=== PATIENT | male | born 1945 | race Caucasian/White ===

== ENCOUNTER 2018-10-08 20:33 | Observation (INO) ==
[2018-10-08 21:26] LABS: Basophils % 0.2 %; Eosinophils # 0.3 K/mcL (0.0-0.6); Eosinophils % 2.4 %; Hematocrit 39.5 % (37.5-50.1); Hemoglobin 13.6 g/dL (12.9-16.9); Immature Granulocytes % 0.6 % (0-4); Lymphocytes # 0.7 K/mcL (0.6-4.6); Lymphocytes % 6.5 %; Mean Corpuscular HGB Conc 34.4 g/dL (31.6-35.5); Mean Corpuscular Hemoglobin 32.5 pg (28.0-33.3); Mean Corpuscular Volume 94.5 fL (83.0-100.0); Monocytes # 0.6 K/mcL (0.0-1.3); Monocytes % 5.5 %; Platelet Count 197 K/mcL (140-400); Red Blood Count 4.18 M/mcL (4.19-5.50); Red Cell Distribution Width 13.2 % (11.5-14.5); Segmented Neutrophils % 84.8 %
[2018-10-08 21:32] LABS: Neutrophils # 9.7 K/mcL (1.6-8.9)
[2018-10-08 21:34] LABS: INR 1.1; Prothrombin Time 12.1 Seconds (9.4-12.1)
[2018-10-08 21:36] LABS: Activated Partial Thrombo Time 31.1 Seconds (26.0-36.0)
[2018-10-08 21:56] LABS: BUN/Creatinine Ratio 13 (6-26); Blood Urea Nitrogen 12 mg/dL (8-23); Calcium 9.3 mg/dL (8.6-10.3); Carbon Dioxide 24 mEq/L (23-29); Chloride 107 mEq/L (98-107); Glucose 141 mg/dL (70-105); Osmolality,Calculated 290 (280-300); Potassium 3.8 mEq/L (3.5-5.1); Sodium 139 mEq/L (136-145); eGFR For Non-African Americans > 60 (> 60)
--- NOTE | 2018-10-08 22:36 | Emergency Department Note ---
Disposition Clinical Impression: Acute exacerbation of chronic obstructive airways disease Disposition: Admitted As Inpatient Condition: Fair Referrals: Rohit Solis MD [Primary Care Provider] - Forms: ED Satisfaction Letter Time of Disposition: 23:51 SOB HPI - General Chief Complaint: ED Shortness of Breath/Dyspnea Stated Complaint: KACIE Time Seen by Provider: 10/08/18 20:40 Source: patient, EMS Mode of arrival: ambulatory Limitations: no limitations, other Nursing Notes Reviewed: Yes Vital Signs Reviewed: Yes - History of Present Illness 72-year-old male who presents to the emergency increasing shortness of breath received DuoNeb treatments and Solu-Medrol in route was X she starting to feel better at this point he denies any blurred vision double vision is having dyspnea with activity dyspnea with exertion denies any chest pain or chest pressure patient states is just having shortness of breath he feels that he smothering he denies any diarrhea melena hematochezia hematemesis he said symptoms started about 6 weeks ago he denies any recent weight gain or weight loss he denies any additional complaints with complete entire review systems Pt Subjective Complaint: shortness of breath Onset (ago): week(s) (6) Context: recent illness Severity: none Consistency/Duration: gradually worsening Improves with: nothing Worsens with: nothing Known history of: COPD Associated symptoms: Reports: cough, wheezing, sputum production. Denies: chest pain, pain with inspiration, fever, orthopnea, lower extremity pain, polyuria, polydipsia, parasthesias, palpitations, hemoptysis, diaphoresis, nausea/vomiting, syncope, abdominal pain, sense of impending doom Treatment prior to arrival: none Cough present: Yes Cough Description: Voluntary, Non-Productive, Strong Cough Frequency: Continuous Sputum production: Yes Sputum Amount: Scant Sputum Color: White - Related Data Home Medications Medication Instructions Recorded Confirmed Atorvastatin [Lipitor] 40 mg PO HS 02/12/17 11/27/17 Cholecalciferol (Vitamin D3) 2,000 unit PO DAILY 02/12/17 11/27/17 [Vitamin D] Cyanocobalamin (Vitamin B-12) 1,000 mcg PO DAILY 02/12/17 11/27/17 [Vitamin B12] SUMAtriptan succinate [Imitrex] 6 mg SQ Q2-4H PRN 11/27/17 11/27/17 Allergies Allergy/AdvReac Type Severity Reaction Status Date / Time Sulfa (Sulfonamide AdvReac See Verified 11/21/17 17:24 Antibiotics) Comments All systems ED: reviewed and negative except as stated. Review of Systems: As Per HPI Constitutional: Reports: weakness. Denies: fever, chills Eyes: Denies: eye pain, eye discharge ENT ED: Denies: ear pain, throat pain Cardiovascular: Reports: dyspnea on exertion. Denies: chest pain, palpitations Respiratory: Reports: wheezes, sputum production. Denies: cough, dyspnea Gastrointestinal: Denies: abdominal pain, nausea Genitourinary: Denies: urgency, dysuria Musculoskeletal: Denies: back pain, neck pain Integumentary: Denies: rash Neurological: Reports: headache Psychiatric: Denies: anxiety Endocrine: Denies: fatigue, heat or cold intolerance Hematological/Lymphatic: Denies: easy bleeding Allergic/Immunologic: Denies: facial swelling Past Medical History - Past Medical History Attestation: Yes The following information was validated with the patient. Source: patient, old records reviewed, nursing notes reviewed Medical history: Reports: cardiomyopathy, hyperlipidemia Surgical history: Reports: appendectomy, herniorrhaphy Psychiatric history: Reports: no psych history - Social History Smoking Status: Current every day smoker Smokeless Tobacco Status: No Alcohol use: Reports: rarely Drug use: Reports: none Physical Exam - General Limitations: other General appearance: alert, in no apparent distress - Head Head exam: atraumatic, normocephalic, normal inspection - Eye Eye exam: Present: normal appearance, PERRL, EOMI - ENT ENT exam: normal exam, normal oropharynx, mucous membranes moist, TM's normal bilaterally, normal external ear exam - Neck Neck exam: Present: normal inspection, full ROM, trachea midline - Chest Chest inspection: Present: normal inspection, symmetric chest wall rise - Respiratory Respiratory exam: Present: normal lung sounds bilaterally - Cardiovascular Cardiovascular exam: Present: regular rate, normal rhythm, normal heart sounds - Abdominal Exam Abdominal exam: Present: soft, Non-Tender, normal bowel sounds. Absent: mass, pulsatile mass - Expanded Upper Extremity Exam Shoulder exam: Present: normal inspection, full ROM Arm exam: Present: normal inspection, full ROM Elbow exam: Present: normal inspection, full ROM Forearm/Wrist exam: Present: normal inspection, full ROM Hand exam: Present: normal inspection, full ROM Vascular exam: Normal: capillary refill, radial pulse - Expanded Lower Extremity Exam Hip/Pelvis exam: Present: normal inspection, full ROM Upper leg exam: Present: normal inspection, full ROM Knee exam: Present: normal inspection, full ROM Lower leg exam: Present: normal inspection, full ROM Ankle exam: Present: normal inspection, full ROM Foot/toe exam: Present: normal inspection, full ROM Neurovascular/Tendon exam: Present: normal capillary refill, normal fine/light touch. Absent: motor deficit, sensory deficit, tendon deficit Gait: observed and normal - Back Exam Back exam: Present: normal inspection, full ROM. Absent: muscle spasm - Neurological Exam Neurological exam: Present: alert, oriented X3, CN II-XII intact, normal gait - Psychiatric Psychiatric exam: Present: normal affect, normal mood - Skin Skin exam: Present: warm, dry, intact, normal color Course Course Narrative: pt seen and examined and admitted transferred to [facility] for management of COPD exacerbation Vital Signs Temperature 98.0 F 10/08/18 20:35 Pulse Rate 92 10/08/18 20:35 Respiratory Rate 26 10/08/18 20:35 Blood Pressure 131/76 10/08/18 20:35 O2 Sat by Pulse Oximetry 91 10/08/18 20:35 Temperature 98.0 F 10/08/18 20:35 Pulse Rate 86 10/08/18 21:13 Respiratory Rate 18 10/08/18 21:13 Blood Pressure 128/80 10/08/18 21:13 O2 Sat by Pulse Oximetry 95 10/08/18 21:13 Oxygen Delivery Oxygen Delivery Nasal Cannula Shortness of Breath/Dyspnea - Differential Diagnosis Likely: acute exacerbation of chronic obstructive airways disease - Medical Records Medical records reviewed: Yes I reviewed the patient's medical records. - Lab Data Lab results reviewed: Yes I reviewed the patient's lab results. Result diagrams: 10/08/18 21:19 10/08/18 21:19 Lab Results 10/08/18 10/08/18 10/08/18 Range/Units 21:19 21:19 21:19 WBC 11.4 H (4.3-11.1) K/mcL RBC 4.18 L (4.19-5.50) M/mcL Hgb 13.6 (12.9-16.9) g/dL Hct 39.5 (37.5-50.1) % MCV 94.5 (83.0-100.0) fL MCH 32.5 (28.0-33.3) pg MCHC 34.4 (31.6-35.5) g/dL RDW 13.2 (11.5-14.5) % Plt Count 197 (140-400) K/mcL MPV 9.0 L (9.4-12.4) fL Immature Gran % 0.6 (0-4) % Seg Neutrophils % 84.8 % Lymphocytes % 6.5 % Monocytes % 5.5 % Eosinophils % 2.4 % Basophils % 0.2 % Neutrophils # 9.7 H (1.6-8.9) K/mcL Lymphocytes # 0.7 (0.6-4.6) K/mcL Monocytes # 0.6 (0.0-1.3) K/mcL Eosinophils # 0.3 (0.0-0.6) K/mcL Basophils # 0.0 (0.0-0.2) K/mcL PT 12.1 (9.4-12.1) Seconds INR 1.1 APTT 31.1 (26.0-36.0) Seconds Sodium 139 (136-145) mEq/L Potassium 3.8 (3.5-5.1) mEq/L Chloride 107 (98-107) mEq/L Carbon Dioxide 24 (23-29) mEq/L BUN 12 (8-23) mg/dL Creatinine 0.93 (0.70-1.30) mg/dL Est GFR ( Amer) > 60 (> 60) Est GFR (Non-Af Amer) > 60 (> 60) BUN/Creatinine Ratio 13 (6-26) Glucose 141 H (70-105) mg/dL Calculated Osmolality 290 (280-300) Lactic Acid (0.5-2.2) mmol/L Calcium 9.3 (8.6-10.3) mg/dL Troponin I (< 0.04) ng/mL 10/08/18 10/08/18 Range/Units 21:19 21:19 WBC (4.3-11.1) K/mcL RBC (4.19-5.50) M/mcL Hgb (12.9-16.9) g/dL Hct (37.5-50.1) % MCV (83.0-100.0) fL MCH (28.0-33.3) pg MCHC (31.6-35.5) g/dL RDW (11.5-14.5) % Plt Count (140-400) K/mcL MPV (9.4-12.4) fL Immature Gran % (0-4) % Seg Neutrophils % % Lymphocytes % % Monocytes % % Eosinophils % % Basophils % % Neutrophils # (1.6-8.9) K/mcL Lymphocytes # (0.6-4.6) K/mcL Monocytes # (0.0-1.3) K/mcL Eosinophils # (0.0-0.6) K/mcL Basophils # (0.0-0.2) K/mcL PT (9.4-12.1) Seconds INR APTT (26.0-36.0) Seconds Sodium (136-145) mEq/L Potassium (3.5-5.1) mEq/L Chloride (98-107) mEq/L Carbon Dioxide (23-29) mEq/L BUN (8-23) mg/dL Creatinine (0.70-1.30) mg/dL Est GFR ( Amer) (> 60) Est GFR (Non-Af Amer) (> 60) BUN/Creatinine Ratio (6-26) Glucose (70-105) mg/dL Calculated Osmolality (280-300) Lactic Acid 0.8 (0.5-2.2) mmol/L Calcium (8.6-10.3) mg/dL Troponin I < 0.03 (< 0.04) ng/mL - Radiology Data Radiology results reviewed: Yes I reviewed the patient's radiology results. ITS Impressions Chest X-Ray 10/08/18 21:06 IMPRESSION: No acute cardiopulmonary process D/ / Prince Tomas / Prince Tomas Interpreting Provider: Prince Tomas Critical Care Time Critical Care Time: No
[2018-10-08] MEDS ORDERED: Acetaminophen/Butalbital/CaffeineTABLET PO PRN (23:40)
[2018-10-08] MEDS ORDERED: Acetaminophen/Butalbital/CaffeineTABLET PO ONE (23:50)
[2018-10-09] MEDS ORDERED: Naloxone 0.4 MG/ML INJ IVP PRN ×2 (00:52)
[2018-10-09] MEDS ORDERED: Ondansetron 4 MG/2 ML VIAL IVP PRN (00:52)
[2018-10-09] MEDS: 0.9 % Sodium Chloride 1,000 ML IVC SCH ×2 (01:18→08:54)
[2018-10-09] MEDS: MethylPREDNISolone 40 MG/ML VIAL IVP SCH ×2 (01:18→06:09)
[2018-10-09] MEDS: Albuterol 2.5 MG/3 ML NEBULIZER IH SCH ×2 (02:19→04:20)
[2018-10-09] MEDS: Ipratropium/Albuterol Neb 3 ML IH SCH ×2 (04:21→10:49)
[2018-10-09 05:57] LABS: Basophils % 0.1 %; Hematocrit 40.7 % (37.5-50.1); Hemoglobin 13.9 g/dL (12.9-16.9); Immature Granulocytes % 0.6 % (0-4); Lymphocytes # 0.3 K/mcL (0.6-4.6); Mean Corpuscular HGB Conc 34.2 g/dL (31.6-35.5); Mean Corpuscular Hemoglobin 32.7 pg (28.0-33.3); Mean Corpuscular Volume 95.8 fL (83.0-100.0); Mean Platelet Volume 9.6 fL (9.4-12.4); Monocytes # 0.1 K/mcL (0.0-1.3); Monocytes % 0.6 %; Neutrophils # 7.5 K/mcL (1.6-8.9); Platelet Count 214 K/mcL (140-400); Red Blood Count 4.25 M/mcL (4.19-5.50); Red Cell Distribution Width 13.2 % (11.5-14.5); Segmented Neutrophils % 94.7 %
[2018-10-09 06:16] LABS: BUN/Creatinine Ratio 15 (6-26); Blood Urea Nitrogen 13 mg/dL (8-23); Calcium 9.5 mg/dL (8.6-10.3); Carbon Dioxide 22 mEq/L (23-29); Chloride 105 mEq/L (98-107); Glucose 166 mg/dL (70-105); Osmolality,Calculated 284 (280-300); Potassium 3.8 mEq/L (3.5-5.1); Sodium 135 mEq/L (136-145); eGFR For Non-African Americans > 60 (> 60)
[2018-10-09] MEDS ORDERED: Albuterol 2.5 MG/3 ML NEBULIZER IH PRN (07:45)
[2018-10-09] MEDS ORDERED: Levofloxacin 500 MG/100 ML 500 MG/100 ML BAG IVPB SCH (09:00)
[2018-10-09 10:37] VITALS: BP 115/65
--- NOTE | 2018-10-09 11:58 | Internal Med History&Physical ---
Date of Encounter: 10/09/18 Time of Encounter: 11:25 Assessment and Plan (1) Acute exacerbation of chronic obstructive airways disease Current visit: Yes Status: Acute He was started on IV Levaquin and steroids in emergency room. The chest x-ray showed no infiltrate. He will not continue with antibiotics. He will be given Pro-air HFA at discharge. Internal Medicine - H&P: HPI Chief complaint: Cough and dyspnea Admitted From: Emergency Dept Plans for Post Hospital Care: Home History of present illness: Mr. Morris is a 72 year old male who came to emergency room complaining of cough and dyspnea onset onset several days earlier but worsening in the past 2 days. He also reported feeling slightly "off balance" but had no falls. He denies fevers chills vomiting diarrhea or pain. He was evaluated in emergency room and was felt to have exacerbation of COPD. He was admitted to [facility] floor for ongoing care needs. He has smoked since age 16 up to 1-1/2 packs per day. He was diagnosed with emphysema but does not recall PFTs. He does not use home oxygen. He states he feels improved at the present time and wishes to be discharged home. Past Med Surg Social Fam HX - Past Medical History Medical history: cardiomyopathy, COPD, hyperlipidemia Additional medical history: cluster headaches Psychiatric history: no psych history - Past Surgical History Surgical History: appendectomy, herniorrhaphy Additional surgical history: bladder surgery, colonoscopy,tonsils - Social History Smoking Status: Current every day smoker Smokeless Tobacco Status: No Alcohol use: rarely Drug use: none - Family History Mother Age: 78 Living Status: Cause of : CHF Hx Family Cardiac Disorders: Yes Hx Family Endocrine Disorder: Yes (Diabetes) Father Living Status: Age at : 78 Cause of : CHF Hx Family Cardiac Disorders: Yes Internal Medicine - H&P: Meds Atorvastatin [Lipitor] 40 mg PO HS 02/12/17 [History] Cholecalciferol (Vitamin D3) [Vitamin D] 2,000 unit PO DAILY 02/12/17 [History] Cyanocobalamin (Vitamin B-12) [Vitamin B12] 1,000 mcg PO DAILY 02/12/17 [History] SUMAtriptan succinate [Imitrex] 6 mg SQ Q2-4H PRN 11/27/17 [History] Allergy/AdvReac Type Severity Reaction Status Date / Time Sulfa (Sulfonamide AdvReac See Verified 11/21/17 17:24 Antibiotics) Comments All Systems PM: A 10-system review of systems was performed and is negative for pertinent findings except as documented above in the HPI. Review of systems: Gen.: He states his weight has been stable for several months Cardiovascular: He denies hypertension NE heart failure angina DVT or pulmonary embolus Respiratory: As per history of present illness GI: He denies disorders of his liver gallbladder or exocrine pancreas : He has had kidney stones with lithotripsy remotely. He denies other kidney bladder prostate disorders. Neurologic: He has rare episodes of migraine headaches. He also has history of occasional cluster headaches. He denies large distribution strokes or seizures. Endocrine: He has hyperlipidemia but denies diabetes or thyroid disease Hematology/oncology: He denies blood disorders cancers or anemia Psychiatric: He has feelings of anxiety and depression since his last year. He does not take medication for these. He denies other mental health issues. [place] skeletal: He denies arthritis gout or other bone joint or muscle disorders. - Constitutional Vitals: Temp Pulse Resp BP Pulse Ox 97.5 F L 78 16 115/65 92 10/09/18 10:35 10/09/18 10:35 10/09/18 10:49 10/09/18 10:35 10/09/18 10:49 Exam: Gen.: He is a well-developed well-nourished male resting comfortably in bed who appears in no acute distress at present time HEENT: Head is atraumatic and normocephalic. Eyes: EOMI. There is no scleral icterus. Mouth: Mucosa is moist. Neck: Supple and nontender. There is no thyromegaly or adenopathy noted. Heart: Regular without murmurs gallops or ectopics Lungs: No wheezes or crackles are heard. Abdomen: Soft and nontender. No masses or guarding are noted. Extremities: There is no cyanosis edema or clubbing noted. Dorsalis pedis and posterior tibial pulses are 1-2 over 2 bilaterally. Neurologic: Mental status: He is talkative and a good historian. Cranial nerves: Smile is symmetric. Forehead wrinkles bilaterally. Tongue protrudes midline. EOMI. Motor: There is no pronator drift. Cerebellar: Finger to nose is intact bilaterally. Skin: Warm and dry Internal Med - H&P Results - Labs CBC & Chem 7: 10/09/18 04:36 10/09/18 04:36 Labs: Short CBC 10/08/18 10/09/18 Range/Units 21:19 04:36 WBC 11.4 H 7.9 (4.3-11.1) K/mcL Hgb 13.6 13.9 (12.9-16.9) g/dL Hct 39.5 40.7 (37.5-50.1) % Plt Count 197 214 (140-400) K/mcL Neutrophils # 9.7 H 7.5 (1.6-8.9) K/mcL BMP 10/08/18 10/09/18 21:19 04:36 Sodium 139 135 L Potassium 3.8 3.8 Chloride 107 105 Carbon Dioxide 24 22 L BUN 12 13 Creatinine 0.93 0.87 Glucose 141 H 166 H Calcium 9.3 9.5 Cardiac Enzymes 10/08/18 Range/Units 21:19 Troponin I < 0.03 (< 0.04) ng/mL - Impressions ITS Impressions Chest X-Ray 10/08/18 21:06 IMPRESSION: No acute cardiopulmonary process D/ / Prince Tomas / Prince Tomas Interpreting Provider: Prince Tomas
--- NOTE | 2018-10-09 12:09 | Discharge Summary ---
Orders not resulted at time of discharge: Pending orders 10/08/18 21:25 Culture,Blood [BC] Stat Date of Encounter: 10/09/18 Time of Encounter: 11:25 - Discharge Diagnosis (1) Bronchitis Priority: Primary Status: Acute (2) Acute exacerbation of chronic obstructive airways disease Priority: Secondary Status: Acute Hospital course: Mr. Morris is a 72 year old male who came to emergency room complaining of cough and dyspnea onset onset several days earlier but worsening in the past 2 days. He also reported feeling slightly "off balance" but had no falls. He denies fevers chills vomiting diarrhea or pain. He was evaluated in emergency room and was felt to have exacerbation of COPD. He was admitted to [facility] floor for [facility] care needs. Initial orders were written by the emergency room physician. I saw him on October 09 and performed a history physical and discharge. He was started on IV Levaquin and steroids through emergency room. I did not feel he needed additional antibiotics. Follow-up labs on October 09 showed WBC normal at 7.9. There was persistent left shift with segs 94.7%. He remained afebrile during his hospital stay. When I saw him on October 09 he felt stable for discharge home. Room air oximetry will be checked on 6 minute walk prior to discharge. He will be given a Pro- air inhaler for prn use. I encouraged him to become a nonsmoker. He will follow with his PCP Dr. Rohit Solis within 1 week. - Time Spent with Patient Total time spent providing and/or coordinating discharge services: - Discharge Medications Prescriptions: New Albuterol Sulfate [Proair Hfa] 2 puff IH Q4H PRN #1 inh PRN Reason: Dyspnea Continue Cyanocobalamin (Vitamin B-12) [Vitamin B12] 1,000 mcg PO DAILY Atorvastatin [Lipitor] 40 mg PO HS Cholecalciferol (Vitamin D3) [Vitamin D3] 2,000 unit PO DAILY SUMAtriptan succinate [Imitrex] 6 mg SQ Q2-4H PRN PRN Reason: Headache Home Medications: Atorvastatin [Lipitor] 40 mg PO HS 02/12/17 [History] Cholecalciferol (Vitamin D3) [Vitamin D3] 2,000 unit PO DAILY 02/12/17 [History] Cyanocobalamin (Vitamin B-12) [Vitamin B12] 1,000 mcg PO DAILY 02/12/17 [History] SUMAtriptan succinate [Imitrex] 6 mg SQ Q2-4H PRN 11/27/17 [History] Albuterol Sulfate [Proair Hfa] 2 puff IH Q4H PRN #1 inh 10/09/18 [Rx] Allergies/Adverse Reactions: Allergy/AdvReac Type Severity Reaction Status Date / Time Sulfa (Sulfonamide AdvReac See Verified 11/21/17 17:24 Antibiotics) Comments Date of admission: 10/09/18 00:05 Primary care physician: Rohit Solis MD Consults: 10/09/18 00:52 Consult to Nurse Navigator [CONS] Routine Comment: - Constitutional Vitals: Temp Pulse Resp BP Pulse Ox 97.5 F L 78 16 115/65 92 10/09/18 10:35 10/09/18 10:35 10/09/18 10:49 10/09/18 10:35 10/09/18 10:49 - Patient Status Disposition: Home, Self-Care Condition: Fair - Discharge Instructions Follow Up With: Rohit Solis MD [Primary Care Provider] - 1 week - Diet and Activity Activity: resume usual activities as tolerated Diet: advance to your usual diet
--- NOTE | 2018-10-10 14:24 | Electrocardiograph Report ---
[place] [id number] Test Date: 2018-10-08 Pat Name: Darian Morris Department: EDP-11 Room: [facility] Gender: M [employer]ire Technician: : 1945 Requested By: Avelina Subramanian Order Number: [id number] Reading MD: Gail Hernandez Measurements Intervals [place] Rate: 93 P: 66 VT: 149 QRS: 42 QRSD: 90 T: 62 QT: 345 QTc: 430 Interpretive Statements Sinus rhythm Abnormal R-wave progression, early transition Inferior infarct, old Early repolarization abnormality Electronically Signed On 10-10-2018 14:22:10 EDT by Gail Hernandez
== END 2018-10-09 15:38 | disposition home or self-care (01) ==
LOC: INPPIK 20:33 → EMEROOPIK 20:33 → INPPIK 10-09 00:57
PROVIDERS: ADMIT Internal Medicine; ATTEND Internal Medicine